=== PATIENT | female | born 1975 | race Caucasian/White ===

== ENCOUNTER 2016-11-22 07:05 | Day surgery (SDC) | payer BC ==
[~2016-11-22 07:05] MED LIST: Lactated Ringers 1,000 ML IV SCH; Lidocaine 1% 2 ML ONE; Lidocaine 1%/Sod Bicarbonate in NS 8.4% 1 ML Syringe IV PRN; Midazolam 1 MG/ML 2 ML SDV ONE; Propofol 200 MG/20 ML SDV ONE; Rocuronium 50 MG/5 ML Vial ONE; Scopolamine 1.5 MG Transdermal Patch TRDERM ONE; Sodium Chloride 0.9% 10 ML Syringe FLUSH PRN; fentaNYL 250 MCG/5 ML SDV ONE
[2016-11-22] MEDS ORDERED: Bupivacaine 0.5% 30 ML SDV ONE (07:09)
[2016-11-22] MEDS ORDERED: Sodium Chloride 0.9% 50 ML SDV ONE (07:09)
[2016-11-22] MEDS ORDERED: Midazolam 1 MG/ML 2 ML SDV ONE (07:18)
[2016-11-22] MEDS ORDERED: Propofol 200 MG/20 ML SDV ONE (07:18)
[2016-11-22] MEDS ORDERED: fentaNYL 250 MCG/5 ML SDV ONE (07:18)
[2016-11-22] MEDS ORDERED: Lidocaine 1% 0 ML ONE (07:26)
--- NOTE | 2016-11-22 07:27 | PCM.PREANE ---
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 Respiratory: Reports: no symptoms Cardiovascular: Reports: no symptoms GI: Reports: no symptoms Other: Reports: depression, anxiety - PHYSICAL ASSESSMENT HR: 66 O2 Sat by Pulse Oximetry: 97 RR: 16 BP: 127/82 Temp: 99.5 C Height: 1.65 m Weight: 113.716 kg ASA Class: 2 Mental Status: alert & oriented x3 Airway Class: Mallampati = 2 Dentition: Reports: normal dentition Thyro-Mental Finger Breadths: 2 Mouth Opening Finger Breadths: 3 ROM/Head Extension: full Respiratory Status: lungs clear to auscultation bilaterally Cardiovascular Status: regular rate & rhythm, normal S1, S2, no murmur, blood pressure WNL - ALLERGIES Allergies/Adverse Reactions: Allergies Allergy/AdvReac Type Severity Reaction Status Date / Time No Known Allergies Allergy Verified 11/21/16 14:29 - BLOOD Blood Available: No - ANESTHESIA PLAN Preop Beta Larisa: No Anesthesia Type Planned: general anesthesia - ACKNOWLEDGEMENTS Pt an appropriate candidate for the planned anesthesia: Yes Alternatives and risks of anesthesia discussed w pt/guardian: Yes Pt/Guardian understands and agree with anesthesia plan: Yes PreAnesthesia Questionnaire HEENT History: Reports: Impaired vision Cardiovascular History: Reports: Other (see below) (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, 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, no further problems) Other Cardiovascular History: pt reports she has a slight arrhythmia 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 [place] Respiratory History: Reports: None Gastrointestinal History: Reports: None Genitourinary History: Reports: None [employer] History: Reports: Fibroids, Other (see below) Other OB/BYN History: irregular menses, heavy menses, endometriosis, fibroid uterus, menorrhagia, infertility, missed , hysteroscopy, laparoscopy Musculoskeletal History: Reports: None Neurological History: Reports: None Psychiatric History: Reports: Depression Endocrine/Metabolic History: Reports: None Hematologic History: Reports: None Immunologic History: Reports: None Oncologic (Cancer) History: Reports: None Dermatologic History: Reports: None - Past Surgical History Head Surgeries/Procedures: Reports: None HEENT Surgical History: Reports: Oral surgery GI Surgical History: Reports: Cholecystectomy Other GI Surgeries/Procedures: Hysteroscopy, laporoscopy Female Surgical History: Reports: Other (see below) (laparoscopy and hysteroscopy with TY with anesthetics) Male Surgical History: Reports: None Endocrine Surgical History: Reports: None Neurological Surgical History: Reports: None Musculoskeletal Surgical History: Reports: None Oncologic Surgical History: Reports: None Dermatological Surgical History: Reports: None - SUBSTANCE USE Smoking Status *Q: Never Smoker Second Hand Smoke Exposure: No Recreational Drug Use History: No - HOME MEDS Home Medications: Home Meds Ferrous Sulfate [Iron] 1 tab PO DAILY 11/21/16 [History] Multivitamin [Poly-Vitamin] 1 tab PO DAILY 11/21/16 [History] Norethindrone [Aygestin] 2 tab PO DAILY 11/21/16 [History] - CURRENT (IN HOUSE) MEDS Current Meds: Current Medications Lactated Ringer's (Ringers, Lactated) 1,000 mls @ 125 mls/hr IV ASDIRECTED [facility] Stop: 11/22/16 23:00 Lidocaine/Sodium Bicarbonate (Buffered Lidocaine 1% In Ns 8.4%) 0.25 ml IV ONETIME PRN PRN Reason: Prior to IV Start Stop: 11/22/16 18:00 Sodium Chloride (Saline Flush) 10 ml FLUSH ASDIRECTED PRN PRN Reason: Keep Vein Open Stop: 11/22/16 18:00 Discontinued Medications Fentanyl (Sublimaze) Confirm Administered Dose 250 mcg .ROUTE .STK-MED ONE Stop: 11/22/16 07:04 Fentanyl (Sublimaze) Confirm Administered Dose 250 mcg .ROUTE .STK-MED ONE Stop: 11/22/16 07:19 Lactated Ringer's (Ringers, Lactated) 1,000 mls @ 125 mls/hr IV ASDIRECTED [facility] Stop: 11/21/16 23:00 Lidocaine HCl (Xylocaine-Mpf 1%) Confirm Administered Dose 2 mls @ as directed .ROUTE .STK-MED ONE Stop: 11/22/16 07:03 Lidocaine/Sodium Bicarbonate (Buffered Lidocaine 1% In Ns 8.4%) 0.25 ml IV ONETIME PRN PRN Reason: Prior to IV Start Stop: 11/21/16 18:00 Midazolam HCl (Versed 1 Mg/Ml) Confirm Administered Dose 2 mg .ROUTE .STK-MED ONE Stop: 11/22/16 07:02 Midazolam HCl (Versed 1 Mg/Ml) Confirm Administered Dose 2 mg .ROUTE .STK-MED ONE Stop: 11/22/16 07:19 Propofol (Diprivan 20 Ml) Confirm Administered Dose 200 mg .ROUTE .STK-MED ONE Stop: 11/22/16 07:03 Propofol (Diprivan 20 Ml) Confirm Administered Dose 400 mg .ROUTE .STK-MED ONE Stop: 11/22/16 07:19 Rocuronium [place] (Zemuron) Confirm Administered Dose 50 mg .ROUTE .STK-MED ONE Stop: 11/22/16 07:05 Scopolamine (Transderm-Scop) 1.5 mg TRDERM ONETIME ONE Stop: 11/22/16 07:01 Sodium Chloride (Saline Flush) 10 ml FLUSH ASDIRECTED PRN PRN Reason: Keep Vein Open Stop: 11/21/16 18:00
[2016-11-22] MEDS ORDERED: Succinylcholine/Normal Saline 100 MG/5 ML Syringe ONE (07:31)
[2016-11-22] MEDS ORDERED: Ondansetron 4 MG/2 ML SDV ONE ×2 (07:32→08:37)
[2016-11-22] MEDS ORDERED: Dexamethasone 4 MG/ML SDV ONE (07:32)
[2016-11-22] MEDS ORDERED: Ondansetron 4 MG/2 ML SDV IVPUSH PRN (08:30)
[2016-11-22] MEDS ORDERED: diphenhydrAMINE 50 MG/ML SDV IVPUSH PRN (08:30)
[2016-11-22] MEDS ORDERED: diphenhydrAMINE 50 MG/ML SDV ONE (08:37)
[2016-11-22] MEDS ORDERED: HYDROmorphone 1 MG/ML Syringe ONE (08:53)
[2016-11-22] MEDS ORDERED: Ketorolac 30 MG/ML SDV ONE (09:26)
[2016-11-22] MEDS ORDERED: Lactated Ringers 1,000 ML ONE (09:26)
[2016-11-22] MEDS ORDERED: HYDROmorphone 0.5 MG/0.5 ML Syringe IVPUSH PRN (09:30)
[2016-11-22] MEDS ORDERED: Meperidine PF 50 MG/ML Syringe IVPUSH PRN (09:30)
--- NOTE | 2016-11-22 09:38 | PCM.POSTAN ---
POST ANESTHESIA ASSESSMENT - MENTAL STATUS Mental Status: alert, oriented - VITAL SIGNS Pulse Rate: 92 SaO2: 98 Resp Rate: 10 Blood Pressure: 126/77 Temperature: 97.6 C - RESPIRATORY Respiratory Status: respiratory rate WNL, airway patent, O2 saturation stable, supplemental oxygen - CARDIOVASCULAR CV Status: pulse rate WNL, blood pressure stable - GASTROINTESTINAL GI Status: no symptoms - PAIN Pain Score: 0 - POST OP HYDRATION Hydration Status: adequate & stable
--- NOTE | 2016-11-22 09:41 | PCM.OPNOTE ---
- General Post-Op/Procedure Note Date of Surgery/Procedure: 11/22/16 Operative Procedure(s): Diagnostic laparoscopy , and chromotubation, resection of vaginal wall abscess, dilatation curettage (hysteroscopy, not performed because of pus from the vaginal wall abscess, and difficulty. Visualization with methylene blue. Injection effect on the peritoneum.) Pre Op Diagnosis: Abnormal uterine bleeding, necrosis of fibroid uterus, and menorrhagia, vaginal wall. Cyst Post-Op Diagnosis: Abnormal uterine bleeding, abscess of the vagina, fibroid uterus, and menorrhagia Primary Surgeon: Gab Cunha Secondary Surgeon: Celsa Valle Anesthesia Provider: Reena Mcgill Fluid Replacement, Intraop: 1,100 Output, Urine Amount: 100 EBL in mLs: 150 Drain/Tube Comments:: none Complications: None Condition: Good Free Text/Narrative:: Patient was transported to operating room #2, and placed under general anesthesia in the low dorsal lithotomy position. Prepared and draped in a sterile fashion. SCDs in place and functioning. Prior surgery. Ancef 2 g intravenously prior surgery. Uterine manipulator was placed after examination under anesthesia revealed slightly irregular uterus with normal size. No adnexal masses. A vaginal cyst, which turned out to be vaginal abscess, was noted. Anteriorly, above. The cervix. Twins, cervix, and the urethral meatus. The pneumoperitoneum was obtained. After making a 5 mm incision. After injecting 2 mL of 0.5% Marcaine in the same. Suprapubically, 5 mm ports were placed and prompt visualization of pelvic organs was accomplished. The tubes and ovaries appeared normal. There were some slight adhesions of the bladder area to the anterior uterus, but these were not lysed. Thousand, risk of entry into the bladder. No endometriosis. Appendix was normal. Gallbladder was normal. There was good. Prompt spill of methylene blue solution from both fallopian tubes. The sponge, needle, pack, and sharp count correct, x2. The umbilical incision and suprapubic incision closed with 3-0 Monocryl. Dermabond applied One set of pictures taken 8 images images 001, shows the uterus, and left fallopian tube image, 002, shows the right tube images, 003, shows a better image of the right fallopian tube and ovary, image, 004, shows the next, images , 005, shows appendix, hemorrhage. 06, shows, liver, and gallbladder images, 007, shows the right fallopian tube with dye spilled methylene blue solution. Images 008, shows right fallopian tube after that spill of methylene blue solution. Attention was turned to the vagina at that point. After completion of laparoscopy. The vaginal wall. Cyst was grasped, circumscribed, and, using blunt, and sharp dissection. The cyst was isolated, and entry into the cyst was made to facilitate dissection and removal and avoid bladder injury. There was gross pus draining from the cyst, which was determined to be a vaginal abscess, aerobic, anaerobic cultures were taken. Irrigation was carried out with copious amounts of saline, and the vaginal mucosa was closed running, locking suture of 3-0 Monocryl. It had been plan to do, D&C, and hysteroscopy. Because of methylene blue solution instillation, and the vaginal cyst having complements of an abscess. The hysteroscopy was not performed to avoid introduction of bacteria, into the 2 , D&C was performed to obtain endometrial biopsy because of her history of heavy vaginal bleeding. Sponge, needle, pack, and splint sharp counts having been correct, x2. The procedure was completed, and patient was transported to postanesthesia care unit in satisfactory condition. was not available at time to talk about the, procedure. We'll attempt to talk with him later
[2016-11-22] MEDS: fentaNYL 100 MCG/2 ML SDV IVPUSH PRN ×2 (10:21→10:30)
--- NOTE | 2016-11-22 10:22 | PCM48HPAN ---
Post Anesthesia Note - EVALUATION WITHIN 48HRS OF ANESTHETIC Vital Signs in Normal Range: Yes Patient Participated in Evaluation: Yes Respiratory Function Stable: Yes Airway Patent: Yes Cardiovascular Function Stable: Yes Hydration Status Stable: Yes Pain Control Satisfactory: Yes Nausea and Vomiting Control Satisfactory: Yes Mental Status Recovered: Yes
[2016-11-22 12:20] VITALS: BP 118/64
== END 2016-11-22 12:21 | disposition home or self-care (01) ==
LOC: JD.SDS 07:05
PROVIDERS: ATTEND Obstetrics & Gynecology
PROC: 3E0 Administration, Physiological Systems and Anatomical Regions, Introduction (ICD-10-PCS; principal; 2016-11-22)
PROC: 0UDB7ZZ Extraction of Endometrium, Via Natural or Artificial Opening (ICD-10-PCS; 2016-11-22)
DX: K66.8 Other specified disorders of peritoneum (principal); N75.0 Cyst of Bartholin's gland; N76.0 Acute vaginitis; Z79.899 Other long term (current) drug therapy; Z90.49 Acquired absence of other specified parts of digestive tract; Z98.890 Other specified postprocedural states
CPT/HCPCS: 36415; 49320; 56740; 58120; 58350; 84702; 85025; 86850; 86900; 86901; 87075; 87205; 88305; A9270; J1170; J1200; J1885; J2175; J2250; J2405; J3010; J7120; Q9968; 00840; 87181; J0330; J1100; J2704

== ENCOUNTER 2017-08-12 06:54 | Inpatient (IN) | payer BC ==
[2017-08-12] MEDS ORDERED: Sodium Chloride 0.9% 10 ML Syringe FLUSH PRN (07:00)
[2017-08-12] MEDS ORDERED: Lidocaine 1%/Sod Bicarbonate in NS 8.4% 1 ML Syringe IV PRN (07:00)
[2017-08-12] MEDS ORDERED: Lactated Ringers 1,000 ML IV SCH ×2 (07:00→13:43)
[2017-08-12] MEDS ORDERED: Lidocaine 1% with EPINEPHrine 1:100,000 20 ML MDV ONE (07:07)
[2017-08-12] MEDS ORDERED: Sodium Chloride 0.9% 50 ML SDV ONE (07:07)
[2017-08-12] MEDS ORDERED: Bupivacaine 0.5% 30 ML SDV ONE (07:07)
--- NOTE | 2017-08-12 07:23 | PCM.PREANE ---
Preanesthetic Assessment - Anesthesia/Transfusion/Family Hx Anesthesia History: Prior Anesthesia Reaction Type of Anesthesia Reaction: Excessive Nausea/Vomiting Family History of Anesthesia Reaction: No Transfusion History: No Prior Transfusion(s) - Review of Systems General: No Symptoms Pulmonary: No Symptoms Cardiovascular: No Symptoms Gastrointestinal: No Symptoms Neurological: No Symptoms Other: Reports: Depression - Physical Assessment NPO Status Date: 08/11/17 NPO Status Time: 21:30 Pulse: 65 O2 Sat by Pulse Oximetry: 96 Respiratory Rate: 18 Blood Pressure: 119/71 Temperature: 37.2 C Weight: 115.212 kg ASA Class: 2 Mental Status: Alert & Oriented x3 Airway Class: Mallampati = 2 Dentition: Reports: Normal Dentition Thyro-Mental Finger Breadths: 2 Mouth Opening Finger Breadths: 3 ROM/Head Extension: Full Lungs: Clear to Auscultation, Normal Respiratory Effort Cardiovascular: Regular Rate, Regular Rhythm - Allergies Allergies/Adverse Reactions: Allergies Allergy/AdvReac Type Severity Reaction Status Date / Time No Known Allergies Allergy Verified 08/11/17 15:40 - Acknowledgements Anesthesia Type Planned: General Anesthesia Pt an Appropriate Candidate for the Planned Anesthesia: Yes Alternatives and Risks of Anesthesia Discussed w Pt/Guardian: Yes Pt/Guardian Understands and Agrees with Anesthesia Plan: Yes PreAnesthesia Questionnaire HEENT History: Reports: Impaired Vision Cardiovascular History: Reports: Other (See Below) Other Cardiovascular History: pt reports she has a slight arrhythmia 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 [place] Respiratory History: Reports: None Gastrointestinal History: Reports: None Genitourinary History: Reports: None 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, Other (See Below) Other OB/BYN History: irregular menses, heavy menses, endometriosis, fibroid uterus, menorrhagia, infertility, missed , hysteroscopy, laparoscopy Musculoskeletal History: Reports: None Neurological History: Reports: None Psychiatric History: Reports: Depression Endocrine/Metabolic History: Reports: None Hematologic History: Reports: None Immunologic History: Reports: None Oncologic (Cancer) History: Reports: None Dermatologic History: Reports: None - Past Surgical History Head Surgeries/Procedures: Reports: None HEENT Surgical History: Reports: Oral Surgery Respiratory Surgical History: Reports: None GI Surgical History: Reports: Cholecystectomy Other GI Surgeries/Procedures: Hysteroscopy, laporoscopy Female Surgical History: Reports: D&C, Other (See Below) Other Female Surgeries/Procedures: laparoscopy, hysteroscopy Male Surgical History: Reports: None Endocrine Surgical History: Reports: None Neurological Surgical History: Reports: None Musculoskeletal Surgical History: Reports: None Oncologic Surgical History: Reports: None Dermatological Surgical History: Reports: None - SUBSTANCE USE Smoking Status *Q: Never Smoker Second Hand Smoke Exposure: No Recreational Drug Use History: No - HOME MEDS Home Medications: Home Meds Ibuprofen [Ibuprofen] 600 mg PO TID 08/11/17 [History] - CURRENT (IN HOUSE) MEDS Current Meds: Current Medications Lactated Ringer's (Ringers, Lactated) 1,000 mls @ 125 mls/hr IV ASDIRECTED [facility] Stop: 08/12/17 23:00 Lidocaine/Sodium Bicarbonate (Buffered Lidocaine 1% In Ns 8.4%) 0.25 ml IV ONETIME PRN PRN Reason: Prior to IV Start Stop: 08/12/17 18:00 Sodium Chloride (Saline Flush) 10 ml FLUSH ASDIRECTED PRN PRN Reason: Keep Vein Open Stop: 08/12/17 18:00 Discontinued Medications Cefazolin Sodium (Ancef) Confirm Administered Dose 2 gm .ROUTE .STK-MED ONE Stop: 08/12/17 07:25 Dexamethasone (Dexamethasone) Confirm Administered Dose 20 mg .ROUTE .STK-MED ONE Stop: 08/12/17 07:26 Fentanyl (Sublimaze) Confirm Administered Dose 250 mcg .ROUTE .STK-MED ONE Stop: 08/12/17 07:25 Lactated Ringer's (Ringers, Lactated) Confirm Administered Dose 1,000 mls @ as directed .ROUTE .STK-MED ONE Stop: 08/12/17 07:25 Lidocaine HCl (Xylocaine-Mpf 1%) Confirm Administered Dose 4 mls @ as directed .ROUTE .STK-MED ONE Stop: 08/12/17 07:26 Midazolam HCl (Versed 1 Mg/Ml) Confirm Administered Dose 2 mg .ROUTE .STK-MED ONE Stop: 08/12/17 07:25 Ondansetron HCl (Zofran) Confirm Administered Dose 4 mg .ROUTE .STK-MED ONE Stop: 08/12/17 07:25 Phenylephrine HCl (Phenylephrine In Ns 100 Mcg/Ml) Confirm Administered Dose 1 mg .ROUTE .STK-MED ONE Stop: 08/12/17 07:26 Propofol (Diprivan 20 Ml) Confirm Administered Dose 400 mg .ROUTE .STK-MED ONE Stop: 08/12/17 07:25 Rocuronium [place] (Zemuron) Confirm Administered Dose 50 mg .ROUTE .STK-MED ONE Stop: 08/12/17 07:25
[2017-08-12] MEDS ORDERED: Lactated Ringers 1,000 ML ONE ×2 (07:24→09:25)
[2017-08-12] MEDS ORDERED: fentaNYL 250 MCG/5 ML SDV ONE ×2 (07:24→09:12)
[2017-08-12] MEDS ORDERED: Rocuronium 50 MG/5 ML Vial ONE (07:24)
[2017-08-12] MEDS ORDERED: Midazolam 1 MG/ML 2 ML SDV ONE (07:24)
[2017-08-12] MEDS ORDERED: ceFAZolin 1 GM Vial ONE (07:24)
[2017-08-12] MEDS ORDERED: Propofol 200 MG/20 ML SDV ONE ×2 (07:24→07:46)
[2017-08-12] MEDS ORDERED: Ondansetron 4 MG/2 ML SDV ONE (07:24)
[2017-08-12] MEDS ORDERED: Dexamethasone 4 MG/ML 5 ML MDV ONE (07:25)
[2017-08-12] MEDS ORDERED: Phenylephrine/Normal Saline 100 MCG/ML 10 ML Syringe ONE (07:25)
[2017-08-12] MEDS ORDERED: Lidocaine 1% 4 ML ONE (07:25)
[2017-08-12] MEDS ORDERED: Famotidine 20 MG/2 ML SDV ONE (07:26)
[2017-08-12] MEDS ORDERED: Scopolamine 1.5 MG Transdermal Patch TRDERM ONE (07:30)
[2017-08-12] MEDS ORDERED: Haloperidol Lactate 5 MG/ML SDV IVPUSH ONE (09:06)
[2017-08-12] MEDS ORDERED: HYDROmorphone 0.5 MG/0.5 ML Syringe IVPUSH PRN (09:06)
[2017-08-12] MEDS ORDERED: fentaNYL 100 MCG/2 ML SDV IVPUSH PRN (09:06)
[2017-08-12] MEDS ORDERED: HYDROmorphone 1 MG/ML Syringe ONE (09:11)
[2017-08-12] MEDS ORDERED: Ketorolac 30 MG/ML SDV ONE (09:25)
--- NOTE | 2017-08-12 10:43 | PCM.POSTAN ---
POST ANESTHESIA ASSESSMENT - MENTAL STATUS Mental Status: Alert, Oriented - VITAL SIGNS Pulse Rate: 69 SaO2: 99 Resp Rate: 11 Blood Pressure: 134/70 Temperature: 36.4 C - RESPIRATORY Respiratory Status: Respiratory Rate WNL, Airway Patent, O2 Saturation Stable, Supplemental Oxygen - CARDIOVASCULAR CV Status: Pulse Rate WNL - GASTROINTESTINAL GI Status: No Symptoms - PAIN Pain Score: 0 - POST OP HYDRATION Hydration Status: Adequate & Stable
--- NOTE | 2017-08-12 10:46 | PCM.OPNOTE ---
- General Post-Op/Procedure Note Date of Surgery/Procedure: 08/12/17 Operative Procedure(s): Total abdominal hysterectomy bilateral salpingectomy ( 48654). Diagnostic laparoscopy 80661 Pre Op Diagnosis: Abnormal uterine bleeding, dysmenorrhea, endometriosis, menorrhagia, leiomyomata uteri Post-Op Diagnosis: Same Anesthesia Technique: General ET Tube Primary Surgeon: Gab Cunha Secondary Surgeon: Ever Johnson Anesthesia Provider: Cira Sen Cuff Setter Overlock: Ivana Monsalve (ROBBIE) Reason Cuff Setter Overlock Was Necessary: Decrease co-morbidity and co-mortality, retraction Role of Cuff Setter Overlock: Decrease co-morbidity and co-mortality, retraction Fluid Replacement, Intraop: 2,300 Output, Urine Amount: 100 EBL in mLs: 250 Drain/Tube Comments:: Fournier Complications: None Condition: Good Free Text/Narrative:: Patient was transported to operating room #2 and placed under general anesthesia with endotracheal intubation in the low dorsal lithotomy position. Patient had SCDs in place and functioning prior surgery. Ancef 2 g given intravenously prior surgery. Timeout was performed confirming name, date of , and procedure as diagnostic laparoscopy with flap scope assisted vaginal hysterectomy bilateral salpingectomy and possible removal of one or both ovaries , possible total abdominal hysterectomy bilateral salpingectomy with removal of one or both ovaries in (diagnostic laparoscopy and total abdominal hysterectomy bilateral salpingectomy performed.) Examination under anesthesia revealed anterior uterus no adnexal masses the uterus is upper limits of normal size. Patient was prepared and draped in a sterile fashion Fournier catheter placed to gravity drainage. Uterine manipulator was placed, the uterus having sounded to 10 cm. The area of the planned umbilical incision was injected with 2 mL of 0.25 % lidocaine without epinephrine. Also in the midline suprapubic area in the area of her previous incision from laparoscopy 2 mL of 0.25% lidocaine injected. The umbilical incision was made the varies needle was introduced and pneumoperitoneum was obtained without difficulty. 5 mm trocar was introduced, suprapubic incision was made and a additional 5 mm trocar introduced for manipulation of the pelvic organs to determine if able to proceed with flap scope assisted vaginal hysterectomy versus opening the abdomen and proceeding with total abdominal hysterectomy. After evaluation of the pelvic organs suspected endometriosis adhesions of the colon to the posterior cul-de-sac, and the patient's short stature, the decision was made to proceed with abdominal hysterectomy. The trochars were removed the umbilical incision closed with 4-0 Monocryl. Pfannenstiel incision was made and care was sharp section to into the anterior fascia. The peritoneal cavity was entered without difficulty. A medium Hawa retractor was introduced. The bowel was packed away from the planned operative site utilizing 5 moistened lap sponges. The uterus was grasped with Hakeem's bilaterally and elevated both ovaries appeared normal, there was a simple cyst on the right ovary. Neither ovary was removed during the surgery. The left fallopian tube was grasped elevated and clamped in the area of the mesial salpinx utilizing the Enseal apparatus activating incising and removing the left and then the right fallopian tube proceeding in a pedicle fashion caudad crossclamping the triple pedicle area with the Enseal, the triple pedicles were electrocoagulated and incised. The uterine vasculature was then isolated crossclamped incised after activation of the Enseal with hemostasis. Bladder flap was created the bladder was pushed caudad and crossclamping on each side with the Enseal activating and incising. The right uterine artery began bleeding and was crossclamped with the Enseal activated and bleeding was contained without loss of more than 2-3 mL of blood. Utilizing Alexis clamps crossclamping the uterosacral cardinal ligaments and anterior vagina were approximated with the Alexis clamp and incised removing the cervix uterus as well as the fallopian tubes were previously removed at the beginning the surgery. The vaginal cuff was suture ligated in the center with 0 Monocryl [id number] suture and Alexis fixation sutures utilizing #1 Vicryl at each angle. Irrigation was carried out 1 L of saline and approximately 400 mL of distilled water searching for bleeding. No bleeding, the sponge needle pack asthma sharp count correct 2 the abdominal cavity was closed in layers utilizing #1 PDS for the anterior fascia the subcutaneous tissue was closed in 2 layers with 0 Monocryl interrupted layers for the first layer and a running 0 Monocryl for the second layer. Skin was closed with 3-0 Monocryl on Remy needle. Dermabond applied. No blood transfusions required, patient transported postanesthesia care unit in satisfactory condition.
[2017-08-12] MEDS ORDERED: diphenhydrAMINE 50 MG/ML SDV ONE (11:06)
[2017-08-12] MEDS ORDERED: Ondansetron 4 MG/2 ML SDV IVPUSH PRN (13:43)
[2017-08-12] MEDS: Acetaminophen/oxyCODONE 325-5 MG Tab PO PRN ×2 (14:08→20:17)
--- NOTE | 2017-08-12 15:39 | PCM.SN ---
- Free Text/Narrative Note: DOS: Afebrile, no problems. No vaginal bleeding, no leg cramping. Urine output normal. No blood in urine. Probably home tomorrow.
[2017-08-12] MEDS: Ketorolac 15 MG/ML SDV IVPUSH SCH ×2 (16:01→22:19)
[2017-08-12] MEDS ORDERED: Docusate Sodium 100 MG Cap PO SCH (21:00)
[2017-08-13 07:28] VITALS: BP 107/61
[2017-08-13] MEDS: Ketorolac 15 MG/ML SDV IVPUSH SCH (07:29)
--- NOTE | 2017-08-13 08:34 | PCM.DCSUM1 ---
Discharge Summary - Hospital Course Free Text/Narrative:: [facility] Post-Op/Procedure Note Patient Name: TREASURE KEMP Date of : 79 Patient Status: Inpatient Attending Provider: Gab Cunha Date: 08/12/17 10:41 Initialization Date: 08/12/17 10:41 - General Post-Op/Procedure Note Date of Surgery/Procedure: 08/12/17 Operative Procedure(s): Total abdominal hysterectomy bilateral salpingectomy ( 11676). Diagnostic laparoscopy 15825 Pre Op Diagnosis: Abnormal uterine bleeding, dysmenorrhea, endometriosis, menorrhagia, leiomyomata uteri Post-Op Diagnosis: Same Anesthesia Technique: General ET Tube Primary Surgeon: Gab Cunha Secondary Surgeon: Ever Johnson Anesthesia Provider: Cira Sen Digital Proofing And Platemaker: Ivana Monsalve (PAS) Reason Digital Proofing And Platemaker Was Necessary: Decrease co-morbidity and co-mortality, retraction Role of Digital Proofing And Platemaker: Decrease co-morbidity and co-mortality, retraction Fluid Replacement, Intraop: 2,300 Output, Urine Amount: 100 EBL in mLs: 250 Drain/Tube Comments:: Fournier Complications: None Condition: Good Free Text/Narrative:: Patient was transported to operating room #2 and placed under general anesthesia with endotracheal intubation in the low dorsal lithotomy position. Patient had SCDs in place and functioning prior surgery. Ancef 2 g given intravenously prior surgery. Timeout was performed confirming name, date of , and procedure as diagnostic laparoscopy with flap scope assisted vaginal hysterectomy bilateral salpingectomy and possible removal of one or both ovaries , possible total abdominal hysterectomy bilateral salpingectomy with removal of one or both ovaries in (diagnostic laparoscopy and total abdominal hysterectomy bilateral salpingectomy performed.) Examination under anesthesia revealed anterior uterus no adnexal masses the uterus is upper limits of normal size. Patient was prepared and draped in a sterile fashion Fournier catheter placed to gravity drainage. Uterine manipulator was placed, the uterus having sounded to 10 cm. The area of the planned umbilical incision was injected with 2 mL of 0.25 % lidocaine without epinephrine. Also in the midline suprapubic area in the area of her previous incision from laparoscopy 2 mL of 0.25% lidocaine injected. The umbilical incision was made the varies needle was introduced and pneumoperitoneum was obtained without difficulty. 5 mm trocar was introduced, suprapubic incision was made and a additional 5 mm trocar introduced for manipulation of the pelvic organs to determine if able to proceed with flap scope assisted vaginal hysterectomy versus opening the abdomen and proceeding with total abdominal hysterectomy. After evaluation of the pelvic organs suspected endometriosis adhesions of the colon to the posterior cul-de-sac, and the patient's short stature, the decision was made to proceed with abdominal hysterectomy. The trochars were removed the umbilical incision closed with 4-0 Monocryl. Pfannenstiel incision was made and care was sharp section to into the anterior fascia. The peritoneal cavity was entered without difficulty. A medium Hawa retractor was introduced. The bowel was packed away from the planned operative site utilizing 5 moistened lap sponges. The uterus was grasped with [place]'s bilaterally and elevated both ovaries appeared normal, there was a simple cyst on the right ovary. Neither ovary was removed during the surgery. The left fallopian tube was grasped elevated and clamped in the area of the mesial salpinx utilizing the Enseal apparatus activating incising and removing the left and then the right fallopian tube proceeding in a pedicle fashion caudad crossclamping the triple pedicle area with the Enseal, the triple pedicles were electrocoagulated and incised. The uterine vasculature was then isolated crossclamped incised after activation of the Enseal with hemostasis. Bladder flap was created the bladder was pushed caudad and crossclamping on each side with the Enseal activating and incising. The right uterine artery began bleeding and was crossclamped with the Enseal activated and bleeding was contained without loss of more than 2-3 mL of blood. Utilizing Alexis clamps crossclamping the uterosacral cardinal ligaments and anterior vagina were approximated with the Alexis clamp and incised removing the cervix uterus as well as the fallopian tubes were previously removed at the beginning the surgery. The vaginal cuff was suture ligated in the center with 0 Monocryl [id number] suture and Alexis fixation sutures utilizing #1 Vicryl at each angle. Irrigation was carried out 1 L of saline and approximately 400 mL of distilled water searching for bleeding. No bleeding, the sponge needle pack asthma sharp count correct 2 the abdominal cavity was closed in layers utilizing #1 PDS for the anterior fascia the subcutaneous tissue was closed in 2 layers with 0 Monocryl interrupted layers for the first layer and a running 0 Monocryl for the second layer. Skin was closed with 3-0 Monocryl on Remy needle. Dermabond applied. No blood transfusions required, patient transported postanesthesia care unit in satisfactory condition. HPI Initial Comments: [facility] Post-Op/Procedure Note Patient Name: TREASURE KEMP Date of : 79 Patient Status: Inpatient Attending Provider: Gab Cunha Date: 08/12/17 10:41 Initialization Date: 08/12/17 10:41 - General Post-Op/Procedure Note Date of Surgery/Procedure: 08/12/17 Operative Procedure(s): Total abdominal hysterectomy bilateral salpingectomy ( 25447). Diagnostic laparoscopy 33584 Pre Op Diagnosis: Abnormal uterine bleeding, dysmenorrhea, endometriosis, menorrhagia, leiomyomata uteri Post-Op Diagnosis: Same Anesthesia Technique: General ET Tube Primary Surgeon: Gab Cunha Secondary Surgeon: Ever Johnson Anesthesia Provider: Cira Sen Digital Proofing And Platemaker: Ivana Monsalve (PAS) Reason Digital Proofing And Platemaker Was Necessary: Decrease co-morbidity and co-mortality, retraction Role of Digital Proofing And Platemaker: Decrease co-morbidity and co-mortality, retraction Fluid Replacement, Intraop: 2,300 Output, Urine Amount: 100 EBL in mLs: 250 Drain/Tube Comments:: Fournier Complications: None Condition: Good Free Text/Narrative:: Patient was transported to operating room #2 and placed under general anesthesia with endotracheal intubation in the low dorsal lithotomy position. Patient had SCDs in place and functioning prior surgery. Ancef 2 g given intravenously prior surgery. Timeout was performed confirming name, date of , and procedure as diagnostic laparoscopy with flap scope assisted vaginal hysterectomy bilateral salpingectomy and possible removal of one or both ovaries , possible total abdominal hysterectomy bilateral salpingectomy with removal of one or both ovaries in (diagnostic laparoscopy and total abdominal hysterectomy bilateral salpingectomy performed.) Examination under anesthesia revealed anterior uterus no adnexal masses the uterus is upper limits of normal size. Patient was prepared and draped in a sterile fashion Fournier catheter placed to gravity drainage. Uterine manipulator was placed, the uterus having sounded to 10 cm. The area of the planned umbilical incision was injected with 2 mL of 0.25 % lidocaine without epinephrine. Also in the midline suprapubic area in the area of her previous incision from laparoscopy 2 mL of 0.25% lidocaine injected. The umbilical incision was made the varies needle was introduced and pneumoperitoneum was obtained without difficulty. 5 mm trocar was introduced, suprapubic incision was made and a additional 5 mm trocar introduced for manipulation of the pelvic organs to determine if able to proceed with flap scope assisted vaginal hysterectomy versus opening the abdomen and proceeding with total abdominal hysterectomy. After evaluation of the pelvic organs suspected endometriosis adhesions of the colon to the posterior cul-de-sac, and the patient's short stature, the decision was made to proceed with abdominal hysterectomy. The trochars were removed the umbilical incision closed with 4-0 Monocryl. Pfannenstiel incision was made and care was sharp section to into the anterior fascia. The peritoneal cavity was entered without difficulty. A medium Hawa retractor was introduced. The bowel was packed away from the planned operative site utilizing 5 moistened lap sponges. The uterus was grasped with [place]'s bilaterally and elevated both ovaries appeared normal, there was a simple cyst on the right ovary. Neither ovary was removed during the surgery. The left fallopian tube was grasped elevated and clamped in the area of the mesial salpinx utilizing the Enseal apparatus activating incising and removing the left and then the right fallopian tube proceeding in a pedicle fashion caudad crossclamping the triple pedicle area with the Enseal, the triple pedicles were electrocoagulated and incised. The uterine vasculature was then isolated crossclamped incised after activation of the Enseal with hemostasis. Bladder flap was created the bladder was pushed caudad and crossclamping on each side with the Enseal activating and incising. The right uterine artery began bleeding and was crossclamped with the Enseal activated and bleeding was contained without loss of more than 2-3 mL of blood. Utilizing Alexis clamps crossclamping the uterosacral cardinal ligaments and anterior vagina were approximated with the Alexis clamp and incised removing the cervix uterus as well as the fallopian tubes were previously removed at the beginning the surgery. The vaginal cuff was suture ligated in the center with 0 Monocryl [id number] suture and Alexis fixation sutures utilizing #1 Vicryl at each angle. Irrigation was carried out 1 L of saline and approximately 400 mL of distilled water searching for bleeding. No bleeding, the sponge needle pack asthma sharp count correct 2 the abdominal cavity was closed in layers utilizing #1 PDS for the anterior fascia the subcutaneous tissue was closed in 2 layers with 0 Monocryl interrupted layers for the first layer and a running 0 Monocryl for the second layer. Skin was closed with 3-0 Monocryl on Remy needle. Dermabond applied. No blood transfusions required, patient transported postanesthesia care unit in satisfactory condition. Brief History: [facility] . Post-Op/Procedure Note. Patient Name: TREASURE KEMP [facility] Record Number: [id number]. Date of : Patient Status: Inpatient. Attending Provider: Gab Cunha Number: [id number]. Date: 08/12/17 10:41Initialization Date: 08/12/17 10:41. - General Post-Op/Procedure Note. Date of Surgery/Procedure: 08/12/17. Operative Procedure(s): Total abdominal hysterectomy bilateral salpingectomy ( 32357). Diagnostic laparoscopy 36082. Pre Op Diagnosis: Abnormal uterine bleeding, dysmenorrhea, endometriosis, menorrhagia, leiomyomata uteri. Post-Op Diagnosis: Same. Anesthesia Technique: General ET Tube. Primary Surgeon: Gab Cunha. Secondary Surgeon: Ever Johnson. Anesthesia Provider: Cira Sen. Digital Proofing And Platemaker: Ivana Monsalve (ROBBIE). Reason Digital Proofing And Platemaker Was Necessary: Decrease co-morbidity and co-mortality, retraction. Role of Digital Proofing And Platemaker: Decrease co-morbidity and co-mortality, retraction. Fluid Replacement, Intraop: 2,300. Output, Urine Amount: 100. EBL in mLs: 250. Drain/Tube Comments:: Fournier. Complications: None. Condition: Good. Free Text/ Narrative:: Patient was transported to operating room #2 and placed under general anesthesia with endotracheal intubation in the low dorsal lithotomy position. Patient had SCDs in place and functioning prior surgery. Ancef 2 g given intravenously prior surgery. Timeout was performed confirming name, date of , and procedure as diagnostic laparoscopy with flap scope assisted vaginal hysterectomy bilateral salpingectomy and possible removal of one or both ovaries, possible total abdominal hysterectomy bilateral salpingectomy with removal of one or both ovaries in (diagnostic laparoscopy and total abdominal hysterectomy bilateral salpingectomy performed.) Examination under anesthesia revealed anterior uterus no adnexal masses the uterus is upper limits of normal size. Patient was prepared and draped in a sterile fashion Fournier catheter placed to gravity drainage. Uterine manipulator was placed, the uterus having sounded to 10 cm. The area of the planned umbilical incision was injected with 2 mL of 0.25% lidocaine without epinephrine. Also in the midline suprapubic area in the area of her previous incision from laparoscopy 2 mL of 0.25% lidocaine injected. The umbilical incision was made the varies needle was introduced and pneumoperitoneum was obtained without difficulty. 5 mm trocar was introduced, suprapubic incision was made and a additional 5 mm trocar introduced for manipulation of the pelvic organs to determine if able to proceed with flap scope assisted vaginal hysterectomy versus opening the abdomen and proceeding with total abdominal hysterectomy. After evaluation of the pelvic organs suspected endometriosis adhesions of the colon to the posterior cul-de-sac, and the patient's short stature, the decision was made to proceed with abdominal hysterectomy. The trochars were removed the umbilical incision closed with 4-0 Monocryl. Pfannenstiel incision was made and care was sharp section to into the anterior fascia. The peritoneal cavity was entered without difficulty. A medium Hawa retractor was introduced. The bowel was packed away from the planned operative site utilizing 5 moistened lap sponges. The uterus was grasped with [place]'s bilaterally and elevated both ovaries appeared normal, there was a simple cyst on the right ovary. Neither ovary was removed during the surgery. The left fallopian tube was grasped elevated and clamped in the area of the mesial salpinx utilizing the Enseal apparatus activating incising and removing the left and then the right fallopian tube proceeding in a pedicle fashion caudad crossclamping the triple pedicle area with the Enseal, the triple pedicles were electrocoagulated and incised. The uterine vasculature was then isolated crossclamped incised after activation of the Enseal with hemostasis. Bladder flap was created the bladder was pushed caudad and crossclamping on each side with the Enseal activating and incising. The right uterine artery began bleeding and was crossclamped with the Enseal activated and bleeding was contained without loss of more than 2-3 mL of blood. Utilizing Alexis clamps crossclamping the uterosacral cardinal ligaments and anterior vagina were approximated with the Alexis clamp and incised removing the cervix uterus as well as the fallopian tubes were previously removed at the beginning the surgery. The vaginal cuff was suture ligated in the center with 0 Monocryl [id number] suture and Alexis fixation sutures utilizing #1 Vicryl at each angle. Irrigation was carried out 1 L of saline and approximately 400 mL of distilled water searching for bleeding. No bleeding, the sponge needle pack asthma sharp count correct 2 the abdominal cavity was closed in layers utilizing #1 PDS for the anterior fascia the subcutaneous tissue was closed in 2 layers with 0 Monocryl interrupted layers for the first layer and a running 0 Monocryl for the second layer. Skin was closed with 3-0 Monocryl on Remy needle. Dermabond applied. No blood transfusions required, patient transported postanesthesia care unit in satisfactory condition. - Discharge Data Discharge Date: 08/13/17 Discharge Disposition: Home, Self-Care 01 Condition: Good - Discharge Diagnosis/Problem(s) (1) Abnormal uterine bleeding (AUB) SNOMED Code(s): 41817853096126 ICD Code: N93.9 - ABNORMAL UTERINE AND VAGINAL BLEEDING, UNSPECIFIED Status : Acute Current Visit: Yes (2) Dysmenorrhea SNOMED Code(s): 831255119 ICD Code: N94.6 - DYSMENORRHEA, UNSPECIFIED Status: Acute Current Visit: Yes (3) Endometriosis SNOMED Code(s): 190883687 ICD Code: N80.9 - ENDOMETRIOSIS, UNSPECIFIED Status: Acute Current Visit : Yes (4) Excessive and frequent menstruation SNOMED Code(s): 265444311 ICD Code: N92.0 - EXCESSIVE AND FREQUENT MENSTRUATION WITH REGULAR CYCLE Status: Acute Current Visit: Yes (5) Leiomyoma of uterus SNOMED Code(s): 49452963 ICD Code: D25.9 - LEIOMYOMA OF UTERUS, UNSPECIFIED Status: Acute Current Visit: Yes Qualifiers: Uterine leiomyoma location: unspecified location Qualified Code(s): D25.9 - Leiomyoma of uterus, unspecified - Patient Summary/Data Operative Procedure(s) Performed: Total abdominal hysterectomy bilateral salpingectomy (93227). Diagnostic laparoscopy 29175 Complications: None Consults: None Hospital Course: Uneventful - Patient Instructions Diet: Regular Diet as Tolerated Driving: Do Not Drive (2 weeks or for 48 hours after last Percocet.) Showering/Bathing: May Shower, No Tub Bathing/Swimming (6 weeks) Wound/Incision Care: Keep Operative Site/Wound Site Clean and Dry Notify Provider of: Fever, Increased Pain, Swelling and Redness, Drainage, Nausea and/or Vomiting - Discharge Plan Prescriptions/Med Rec: Acetaminophen/oxyCODONE [Percocet 325-5 MG] 1 tab PO Q6H PRN #20 tablet PRN Reason: Pain (Moderate 4-6) Home Medications: Home Meds Ibuprofen 600 mg PO TID 08/11/17 [History] Acetaminophen/oxyCODONE [Percocet 325-5 MG] 1 tab PO Q6H PRN #20 tablet [Rx] Docusate Sodium [Colace] 100 mg PO BID cap 08/13/17 [Rx] Patient Handouts: Abdominal Hysterectomy, Care After, [id number] - Discharge Summary/Plan Comment DC Time >30 min.: No - Patient Data Vitals - Most Recent: Last Vital Signs Temp 98.2 F 08/13/17 04:00 Pulse 66 08/13/17 04:00 Resp 16 08/13/17 04:00 BP 112/62 08/13/17 04:00 Pulse Ox 92 L 08/13/17 04:00 Weight - Most Recent: 254 lb I&O - Last 24 hours: Intake & Output 08/12/17 08/13/17 08/13/17 22:59 06:59 14:59 Intake Total 1240 650 650 Output Total 1200 425 Balance 40 225 650 Lab Results - Last 24 hrs: Laboratory Results - last 24 hr 08/12/17 08/13/17 Range/Units 07:17 06:25 WBC 17.17 H (3.98-10.04) K/mm3 RBC 3.91 L (3.98-5.22) M/mm3 Hgb 10.6 L (11.2-15.7) gm/L Hct 33.9 L (34.1-44.9) % MCV 86.7 (79.4-94.8) fl MCH 27.1 (25.6-32.2) pg MCHC 31.3 L (32.2-35.5) g/dl RDW Std Deviation 46.9 H (36.4-46.3) fL Plt Count 373 H (182-369) K/mm3 MPV 10.3 (9.4-12.3) fl Neut % (Auto) 84.0 H (34.0-71.1) % Lymph % (Auto) 10.0 L (19.3-51.7) % [place] % (Auto) 5.6 (4.7-12.5) % Eos % (Auto) 0 L (0.7-5.8) Baso % (Auto) 0.1 (0.1-1.2) % Neut # (Auto) 14.43 H (1.56-6.13) K/mm3 Lymph # (Auto) 1.71 (1.18-3.74) K/mm3 [place] # (Auto) 0.97 H (0.24-0.36) K/mm3 Eos # (Auto) 0.00 L (0.04-0.36) K/mm3 Baso # (Auto) 0.01 (0.01-0.08) K/mm3 Blood Type AB POSITIVE Gel Antibody Screen Negative Med Orders - Current: Current Medications Docusate Sodium (Colace) 100 mg PO BID [facility] Last Admin: 08/12/17 20:17 Dose: 100 mg Lactated Ringer's (Ringers, Lactated) 1,000 mls @ 125 mls/hr IV ASDIRECTED [facility] Ibuprofen (Motrin) 600 mg PO Q6H PRN PRN Reason: Pain (mild 1-3) Ondansetron HCl (Zofran) 4 mg IVPUSH Q4H PRN PRN Reason: Nausea/Vomiting Oxycodone/Acetaminophen (Percocet 325-5 Mg) 2 tab PO Q4H PRN PRN Reason: Pain (moderate 4-6) Last Admin: 08/12/17 20:17 Dose: 1 tab Discontinued Medications Bupivacaine HCl (Marcaine 0.5%) Confirm Administered Dose 30 ml .ROUTE .STK-MED ONE Stop: 08/12/17 07:08 Last Admin: 08/12/17 08:36 Dose: 20 ml Cefazolin Sodium (Ancef) Confirm Administered Dose 2 gm .ROUTE .STK-MED ONE Stop: 08/12/17 07:25 Dexamethasone (Dexamethasone) Confirm Administered Dose 20 mg .ROUTE .STK-MED ONE Stop: 08/12/17 07:26 Diphenhydramine HCl (Benadryl) Confirm Administered Dose 50 mg .ROUTE .STK-MED ONE Stop: 08/12/17 11:07 Famotidine (Pepcid) Confirm Administered Dose 20 mg .ROUTE .STK-MED ONE Stop: 08/12/17 07:27 Fentanyl (Sublimaze) Confirm Administered Dose 250 mcg .ROUTE .STK-MED ONE Stop: 08/12/17 07:25 Fentanyl (Sublimaze) Confirm Administered Dose 250 mcg .ROUTE .STK-MED ONE Stop: 08/12/17 09:13 Fentanyl (Sublimaze) 50 mcg IVPUSH Q5M PRN PRN Reason: Pain Stop: 08/12/17 18:00 Haloperidol Lactate (Haldol) 1 mg IVPUSH ONETIME ONE Stop: 08/12/17 09:07 Last Admin: 08/12/17 16:57 Dose: Not Given Hydromorphone HCl (Dilaudid) Confirm Administered Dose 1 mg .ROUTE .STK-MED ONE Stop: 08/12/17 09:12 Hydromorphone HCl (Dilaudid) 0.5 mg IVPUSH Q15M PRN PRN Reason: severe pain Stop: 08/12/17 16:00 Last Admin: 08/12/17 11:08 Dose: 0.5 mg Lactated Ringer's (Ringers, Lactated) 1,000 mls @ 125 mls/hr IV ASDIRECTED TORSTEN Stop: 08/12/17 23:00 Last Admin: 08/12/17 07:10 Dose: 125 mls/hr Lactated Ringer's (Ringers, Lactated) Confirm Administered Dose 1,000 mls @ as directed .ROUTE .STK-MED ONE Stop: 08/12/17 07:25 Lidocaine HCl (Xylocaine-Mpf 1%) Confirm Administered Dose 4 mls @ as directed .ROUTE .STK-MED ONE Stop: 08/12/17 07:26 Lactated Ringer's (Ringers, Lactated) Confirm Administered Dose 1,000 mls @ as directed .ROUTE .STK-MED ONE Stop: 08/12/17 09:26 Ketorolac Tromethamine (Toradol) Confirm Administered Dose 30 mg .ROUTE .STK- MED ONE Stop: 08/12/17 09:26 Ketorolac Tromethamine (Toradol) 30 mg IVPUSH Q6H TORSTEN Stop: 08/13/17 04:01 Last Admin: 08/13/17 07:29 Dose: Not Given Lidocaine/Epinephrine (Xylocaine 1% With Epinephrine 1:100,000) Confirm Administered Dose 20 ml .ROUTE .STK-MED ONE Stop: 08/12/17 07:08 Lidocaine/Sodium Bicarbonate (Buffered Lidocaine 1% In Ns 8.4%) 0.25 ml IV ONETIME PRN PRN Reason: Prior to IV Start Stop: 08/12/17 18:00 Last Admin: 08/12/17 07:09 Dose: 0.25 ml Midazolam HCl (Versed 1 Mg/Ml) Confirm Administered Dose 2 mg .ROUTE .STK-MED ONE Stop: 08/12/17 07:25 Ondansetron HCl (Zofran) Confirm Administered Dose 4 mg .ROUTE .STK-MED ONE Stop: 08/12/17 07:25 Phenylephrine HCl (Phenylephrine In Ns 100 Mcg/Ml) Confirm Administered Dose 1 mg .ROUTE .STK-MED ONE Stop: 08/12/17 07:26 Propofol (Diprivan 20 Ml) Confirm Administered Dose 400 mg .ROUTE .STK-MED ONE Stop: 08/12/17 07:25 Propofol (Diprivan 20 Ml) Confirm Administered Dose 600 mg .ROUTE .STK-MED ONE Stop: 08/12/17 07:47 Rocuronium [place] (Zemuron) Confirm Administered Dose 50 mg .ROUTE .STK-MED ONE Stop: 08/12/17 07:25 Scopolamine (Transderm-Scop) 1.5 mg TRDERM ONETIME ONE Stop: 08/12/17 07:31 Last Admin: 08/12/17 07:30 Dose: 1.5 mg Sodium Chloride (Saline Flush) 10 ml FLUSH ASDIRECTED PRN PRN Reason: Keep Vein Open Stop: 08/12/17 18:00 Sodium Chloride (Normal Saline) Confirm Administered Dose 50 ml .ROUTE .STK-MED ONE Stop: 08/12/17 07:08 *Q Meaningful Use (DIS) - VTE *Q VTE Criteria *Q: - Stroke *Q Stroke Criteria *Q: - AMI *Q AMI Criteria *Q:
[2017-08-13] MEDS ORDERED: Ibuprofen 600 MG Tab PO PRN (10:00)
--- NOTE | 2017-08-13 11:15 | PCM48HPAN ---
Post Anesthesia Note - EVALUATION WITHIN 48HRS OF ANESTHETIC Vital Signs in Normal Range: Yes Patient Participated in Evaluation: No (Patient went home already. ) Respiratory Function Stable: Yes Airway Patent: Yes Cardiovascular Function Stable: Yes Hydration Status Stable: Yes Pain Control Satisfactory: Yes Nausea and Vomiting Control Satisfactory: Yes Mental Status Recovered: Yes - COMMENTS/OBSERVATIONS Free Text/Narrative:: Candace was discharged early this morning. Spoke with her nurse. She states she was doing great. Reviewed her chart. No apparent anesthetic complications noted.
== END 2017-08-13 08:50 | disposition home or self-care (01) | DRG 513 ==
LOC: JD.SDS 06:54 → JD.OB 11:28
PROVIDERS: ADMIT Obstetrics & Gynecology; ATTEND Obstetrics & Gynecology
PROC: 0UT90ZZ Resection of Uterus, Open Approach (ICD-10-PCS; principal; 2017-08-12)
PROC: 0UTC0ZZ Resection of Cervix, Open Approach (ICD-10-PCS; 2017-08-12)
PROC: 0UT70ZZ Resection of Bilateral Fallopian Tubes, Open Approach (ICD-10-PCS; 2017-08-12)
DX: N92.0 Excessive and frequent menstruation with regular cycle (principal); D25.9 Leiomyoma of uterus, unspecified; N39.3 Stress incontinence (female) (male); N94.6 Dysmenorrhea, unspecified; N80.9 Endometriosis, unspecified
CPT/HCPCS: 00840; 36415; 84702; 85025; 86850; 86900; 86901; A9270-GY; J0690; J1100; J1170; J1200; J1885; J2250; J2405; J2704; J3010; J7120